=== PATIENT | female | born 1950 | race Caucasian/White ===

== ENCOUNTER 2020-07-02 11:58 | Inpatient (IN) | payer MEDICARE, OTHER ==
[~2020-07-02] VITALS: Ht 160 cm; Wt 88.9 kg
--- NOTE | 2020-07-02 12:17 | NUR ---
Patient here for medical clearance. She is awake, alert and oriented to place. She is already n a hold for suicide attempt. She has bandages on her left lower arm that are clean and dry. She has a skin tear below her elbow area on her right forearm. I placed a new clean non adhering bandage over it. 12 lead EKG done. Patient sitting up drinking orange juice as requested
[2020-07-02] MEDS ORDERED: OMEP20CA15 PO (12:32)
[2020-07-02] MEDS ORDERED: PRAV10TA40 PO (12:32)
[2020-07-02] MEDS ORDERED: CAND32TA20 PO (12:32)
[2020-07-02] MEDS ORDERED: VENL75CA62 PO (12:32)
[2020-07-02] MEDS ORDERED: ATEN50TA PO (12:32)
[2020-07-02] MEDS ORDERED: TRIA1CAP6 PO (12:32)
[2020-07-02] MEDS ORDERED: ASPI81TA31 PO (12:32)
[2020-07-02] MEDS ORDERED: TRAZ-257 PO (12:32)
[2020-07-02] MEDS ORDERED: LORAZEPAM 0.5 MG TABLET PO ONE (12:45)
--- NOTE | 2020-07-02 13:01 | NUR ---
covid antigen swab done and sent to lab
[2020-07-02 13:05] LABS: CREATININE 1.5 mg/dL (0.6-1.3); MAGNESIUM 1.3 mg/dL (1.8-2.4); POTASSIUM 3.5 mmol/L (3.5-5.1)
[2020-07-02] MEDS ORDERED: LORAZEPAM 1 MG TABLET ONE (13:05)
[2020-07-02] MEDS ORDERED: POTASSIUM CHLORIDE 20 MEQ TAB.PRT.SR PO ONE (13:45)
[2020-07-02] MEDS ORDERED: POTASSIUM CHLORIDE 20 MEQ TAB.PRT.SR ONE (13:55)
[2020-07-02] MEDS ORDERED: MAGNESIUM OXIDE 400 MG TABLET ONE (13:55)
--- NOTE | 2020-07-02 13:59 | NUR ---
Report given to Hayley NGUYEN.
[2020-07-02] MEDS ORDERED: MAGNESIUM OXIDE 400 MG TABLET PO ONE (14:00)
--- NOTE | 2020-07-02 14:15 | NUR ---
Patients medications listed and sent to pharmacy
[2020-07-02 15:30] VITALS: BP 115/82
[2020-07-02 15:39] LABS: BASOPHILS % (AUTO) 0.8 % (0.0-2.0); EOSINOPHILS # (AUTO) 0.1 K/uL (0.0-0.7); EOSINOPHILS % (AUTO) 1.9 % (0.0-7.0); HEMATOCRIT 36.7 % (31.2-41.9); HEMOGLOBIN 12.9 g/dL (10.9-14.3); LYMPHOCYTES # (AUTO) 1.3 K/uL (20.0-40.0); LYMPHOCYTES % (AUTO) 30.8 % (20.5-51.5); MEAN CORPUSCULAR HEMOGLOBIN 35.9 uug (24.7-32.8); MEAN CORPUSCULAR HGB CONC 35 g/dL (32.3-35.6); MEAN CORPUSCULAR VOLUME 102.2 fL (75.5-95.3); MONOCYTES # (AUTO) 0.5 K/uL (2.0-10.0); MONOCYTES % (AUTO) 11.9 % (0.0-11.0); NEUTROPHILS # (AUTO) 2.4 K/uL (1.8-8.9); NEUTROPHILS % (AUTO) 54.6 % (38.5-71.5); PLATELET COUNT (AUTO) 141 K/uL (179-408); WHITE BLOOD COUNT (AUTO) 4.3 K/uL (3.8-11.8)
[2020-07-02] MEDS ORDERED: MAGNESIUM HYDROXIDE 30 ML LIQUID UDC PO PRN (15:45)
[2020-07-02] MEDS ORDERED: MAG HYDROX/AL HYDROX/SIMETH 30 ML LIQUID UDC PO PRN (15:45)
--- NOTE | 2020-07-02 15:45 | NUR ---
pt was admitted to [facility] from ER via wheelchair. According to 5150, pt attempted suicide by cutting her wrists and then called 911 for help. Upon face to face evaluation, pt states that she has been depressed and she cut herself because she felt like "she did not want to be here." she states she did not have very sharp objects, so she used a razor. pt has mostly skin tears covered by boarder gauze. Pt states that she drinks frequently, almost every day and that's when she feels more depressed. Pt recieved Ativan for withdrawals. Pt admits that she called for help after cutting because she realized that she doesn't really want to be . Pt contracts for safety.
[2020-07-02 16:00] LABS: THYROID STIMULATING HORMONE 1.684 mIU/mL (0.358-3.740)
--- NOTE | 2020-07-02 16:01 | NUR ---
Firearms Report: Auto Service Advisor completed and submitted a [employer] firearms report for 5150 danger to self certifications. A copy of report has been placed in patient chart.
--- NOTE | 2020-07-02 16:07 | NUR ---
Initial Discharge Plan: Patient currently resides at home with brother Srikanth ([phone]) at [address] [place] [address]. Patient would want to return back home. This SW contacted patient's brother Srikanth ([phone]) to discuss treatment plan, however, he was unavailable. This SW will work with the treatment team and the MD to help coordinate proper discharge.
--- NOTE | 2020-07-02 16:07 | NUR ---
Family Contact: This SW contacted patient's brother Srikanth ([phone]) to discuss treatment plan, however, he was unavailable.
[2020-07-02] MEDS ORDERED: Medication Not On Formulary EA (Pravastatin Sodium 1 TAB) PO SCH (18:00)
[2020-07-02] MEDS: LORAZEPAM 0.5 MG TABLET PO PRN (18:44)
[2020-07-02] MEDS: ATENOLOL 50 MG TABLET PO SCH (20:24)
[2020-07-02] MEDS: ATORVASTATIN 10 MG TABLET PO SCH (20:24)
[2020-07-02] MEDS: ACETAMINOPHEN 325 MG TABLET PO PRN (20:25)
[2020-07-02 20:37] VITALS: BP 120/71
[2020-07-02] MEDS: ZOLPIDEM 5 MG TABLET PO PRN (21:41)
[2020-07-03] MEDS: PANTOPRAZOLE SODIUM 40 MG TABLET.DR PO SCH (06:01)
--- NOTE | 2020-07-03 06:40 | NUR ---
PT SLEPT 6 H. PT CALM WHEN APPROACHED. COOPERATIVE WITH CARE. PRESCRIBED MEDICATION GIVEN AND PT TOLERATED IT WELL.PT GIVEN TYLENOL AT 2024H.AMBIEN PRN GIVEN AT 2140H. SAFETY AND COMFORT PROVIDED. WILL ENDORSE TO INCOMING NURSE FOR CONTINUITY OF CARE.
[2020-07-03 07:06] LABS: BILIRUBIN,TOTAL 0.8 mg/dL (0.2-1.0); CREATININE 1.5 mg/dL (0.6-1.3); POTASSIUM 3.7 mmol/L (3.5-5.1); TOTAL PROTEIN, SERUM 7.4 g/dL (6.4-8.2)
[2020-07-03 07:30] VITALS: BP 116/59
--- NOTE | 2020-07-03 08:26 | NUR ---
Brief Substance Abuse Intervention: Patient was provided with a brief substance abuse intervention and referred to the following substance abuse programs: [facility] ([phone]); [facility] [address] [place] [address] ([phone]); [facility] [address] [facility] [place] [address] ([phone]); [facility] ([phone]); [facility] ([phone]); [facility] ([phone]); [facility] ([phone]).
[2020-07-03] MEDS: ASPIRIN 81 MG TAB.CHEW PO SCH (08:47)
[2020-07-03] MEDS: ATENOLOL 50 MG TABLET PO SCH ×2 (08:48→20:36)
[2020-07-03] MEDS: LORAZEPAM 0.5 MG TABLET PO PRN (08:55)
[2020-07-03] MEDS ORDERED: Medication Not On Formulary EA (Omeprazole 1 CAP) PO SCH (09:00)
[2020-07-03] MEDS ORDERED: Medication Not On Formulary EA (Triamterene/Hydrochlorothiazid (Triamterene-Hctz 37.5-25 PO SCH (09:00)
[2020-07-03] MEDS ORDERED: PNEUMOCOCCAL 23-VAL P-SAC VAC 0.5 ML VIAL IM ONE (09:00)
[2020-07-03] MEDS ORDERED: TRIAMTERENE/HCTZ 75-50 MG TABLET PO SCH (09:00)
--- NOTE | 2020-07-03 11:27 | NUR ---
Family Contact: This SW spoke with patient's brother Srikanth ([phone]) and discussed treatment and discharge plan. Srikanth stated he will pickle cutter the patient at time of discharge.
[2020-07-03] MEDS ORDERED: VENLAFAXINE XR 75 MG TAB.ER.24H PO SCH (14:30)
--- NOTE | 2020-07-03 15:45 | NUR ---
Gps/Die Maintenance Technician- IVF of NS infusing at 100 ml /hr via IV pump to his left arm . Patient has adequate fluid intake, needed occ. prompting and encouragement to feed self after set up. Addendum: 07/03/20 at 1548 by VI MCGOWAN LVN Gps/Die Maintenance Technician- Error in charting wrong patient
--- NOTE | 2020-07-03 15:48 | NUR ---
Gps/Specifications Checker- Stayed in the activity room participating in her group tx.
[2020-07-03 16:00] VITALS: BP 157/70
[2020-07-03] MEDS: VENLAFAXINE XR 37.5 MG CAP.SR.24H PO SCH (18:14)
[2020-07-03 20:31] VITALS: BP 148/78
[2020-07-03] MEDS: TRAZODONE 100 MG TABLET PO SCH (20:35)
[2020-07-03] MEDS: ATORVASTATIN 10 MG TABLET PO SCH (20:47)
[2020-07-03] MEDS: ZOLPIDEM 5 MG TABLET PO PRN (22:50)
--- NOTE | 2020-07-04 05:41 | NUR ---
NSG: Remain calm and cooperative with meds and care. self care. no agitation noted through the night. resting in bed comfortably. continue plan of care.
[2020-07-04] MEDS: PANTOPRAZOLE SODIUM 40 MG TABLET.DR PO SCH (06:21)
--- NOTE | 2020-07-04 06:49 | NUR ---
slept 6 hrs through the night.
[2020-07-04 07:30] VITALS: BP 153/78
[2020-07-04] MEDS ORDERED: PNEUMOCOCCAL 23-VAL P-SAC VAC 0.5 ML VIAL IM ONE (09:00)
[2020-07-04] MEDS: ASPIRIN 81 MG TAB.CHEW PO SCH (09:26)
[2020-07-04] MEDS: ATENOLOL 50 MG TABLET PO SCH ×2 (09:26→20:30)
[2020-07-04] MEDS: VENLAFAXINE XR 37.5 MG CAP.SR.24H PO SCH (09:26)
[2020-07-04 09:34] LABS: BASOPHILS % (AUTO) 0.4 % (0.0-2.0); EOSINOPHILS # (AUTO) 0.2 K/uL (0.0-0.7); HEMATOCRIT 37.6 % (31.2-41.9); HEMOGLOBIN 13.1 g/dL (10.9-14.3); LYMPHOCYTES # (AUTO) 2.2 K/uL (20.0-40.0); LYMPHOCYTES % (AUTO) 32.2 % (20.5-51.5); MEAN CORPUSCULAR HGB CONC 35 g/dL (32.3-35.6); MEAN CORPUSCULAR VOLUME 102.8 fL (75.5-95.3); MONOCYTES # (AUTO) 0.5 K/uL (2.0-10.0); MONOCYTES % (AUTO) 7.8 % (0.0-11.0); NEUTROPHILS # (AUTO) 3.9 K/uL (1.8-8.9); NEUTROPHILS % (AUTO) 56.6 % (38.5-71.5); PLATELET COUNT (AUTO) 184 K/uL (179-408); RED BLOOD CELL COUNT(AUTO) 3.65 MIL/uL (3.63-4.92); WHITE BLOOD COUNT (AUTO) 6.8 K/uL (3.8-11.8)
[2020-07-04] MEDS: ACETAMINOPHEN 325 MG TABLET PO PRN ×2 (09:35→17:12)
[2020-07-04] MEDS: LORAZEPAM 0.5 MG TABLET PO PRN ×2 (09:36→17:12)
[2020-07-04 09:52] LABS: CREATININE 1.4 mg/dL (0.6-1.3); MAGNESIUM 1.4 mg/dL (1.8-2.4); PHOSPHOROUS 3.5 mg/dL (2.5-4.9); POTASSIUM 3.9 mmol/L (3.5-5.1); URIC ACID 6.2 mg/dL (2.6-6.0)
--- NOTE | 2020-07-04 10:15 | NUR ---
UR NOTE: AUTH# [id number] YAJAIRA spoke with and faxed Tonja Lindsay [facility] ( ) patient's history and physical, medication and labs. Addendum: 07/04/20 at 1017 by ANJELICA CARRASCO Tonja stated that she will set up the patient's outpatient psychiatric services upon patient's discharge back home.
[2020-07-04] MEDS ORDERED: MAGNESIUM OXIDE 400 MG TABLET PO ONE (11:30)
--- NOTE | 2020-07-04 11:46 | NUR ---
YAJAIRA Individual Therapy: SW met with patient today for individual counseling and addressed patient's presenting problem of suicidal ideation and anxiety. Patient was able to reflect back when she started to have anxiety and the possibilities of why. SW helped patient identify important and significant factors in her life which may effect her emotional state. Patient was able to set new goals and formulate safe plan to prevent suicidal ideation and anxiety. SW provided encouragement and motivation for patient to remain goal oriented.
--- NOTE | 2020-07-04 12:48 | NUR ---
WOUND CARE CONSULT: PT PRESENTS WITH RT UPPER ARM SKIN TEAR, PRESENT ON ADMISSION. RECOMMENDATIONS MADE FOR SKIN PROTECTION AND WOUND CARE. DISCUSSED WITH NURSING STAFF. IN AGREEMENT WITH PLAN OF CARE. Addendum: 07/04/20 at 1249 by DENNY VOGEL RN Amended: Links added.
[2020-07-04 16:00] VITALS: BP 130/79
[2020-07-04 19:56] VITALS: BP 113/58
[2020-07-04] MEDS: ATORVASTATIN 10 MG TABLET PO SCH (20:30)
[2020-07-04] MEDS: TRAZODONE 100 MG TABLET PO SCH (20:30)
[2020-07-04] MEDS: ZOLPIDEM 5 MG TABLET PO PRN (21:54)
[2020-07-05] MEDS: ACETAMINOPHEN 325 MG TABLET PO PRN ×3 (05:00→18:18)
[2020-07-05] MEDS: LORAZEPAM 0.5 MG TABLET PO PRN ×3 (05:00→21:07)
[2020-07-05] MEDS: PANTOPRAZOLE SODIUM 40 MG TABLET.DR PO SCH (05:44)
--- NOTE | 2020-07-05 06:23 | NUR ---
Patient up and down during the night. PRN medication given for anxiety and headache. Patient denies SI at this time. Monitoring for safety , frequent rounding done. Total sleep 6.30 hours.
[2020-07-05 07:30] VITALS: BP 124/69
[2020-07-05] MEDS: VENLAFAXINE XR 37.5 MG CAP.SR.24H PO SCH (08:57)
[2020-07-05] MEDS: ATENOLOL 50 MG TABLET PO SCH ×2 (08:58→21:08)
[2020-07-05] MEDS: ASPIRIN 81 MG TAB.CHEW PO SCH (08:58)
[2020-07-05] MEDS ORDERED: LORAZEPAM 0.5 MG TABLET PO ONE (12:45)
[2020-07-05 16:00] VITALS: BP 131/73
[2020-07-05] MEDS: ATORVASTATIN 10 MG TABLET PO SCH (21:07)
[2020-07-05] MEDS: TRAZODONE 100 MG TABLET PO SCH (21:08)
[2020-07-05] MEDS: ZOLPIDEM 5 MG TABLET PO PRN (22:44)
--- NOTE | 2020-07-06 03:01 | NUR ---
Porter Luggage and patient had a long meaningful conversation last night. Patient adamantly denies having suicidal thoughts at this time. Patient was able to verbalize reasons to live, what her plans are for helping others and some hobbies she is interested in starting up again. Patient does struggle with anxiety and was given a PRN medication for that. Will continue to monitor for safety, SI and any other issues that may arise. No acute distress, frequent rounding done.
[2020-07-06] MEDS: PANTOPRAZOLE SODIUM 40 MG TABLET.DR PO SCH (05:53)
[2020-07-06 07:30] VITALS: BP 142/56
[2020-07-06 07:59] LABS: BASOPHILS % (AUTO) 0.6 % (0.0-2.0); EOSINOPHILS # (AUTO) 0.2 K/uL (0.0-0.7); EOSINOPHILS % (AUTO) 3.3 % (0.0-7.0); HEMATOCRIT 32.8 % (31.2-41.9); HEMOGLOBIN 11.4 g/dL (10.9-14.3); LYMPHOCYTES # (AUTO) 1.4 K/uL (20.0-40.0); LYMPHOCYTES % (AUTO) 25.9 % (20.5-51.5); MEAN CORPUSCULAR HGB CONC 35 g/dL (32.3-35.6); MEAN CORPUSCULAR VOLUME 103.2 fL (75.5-95.3); MONOCYTES # (AUTO) 0.6 K/uL (2.0-10.0); NEUTROPHILS # (AUTO) 3.3 K/uL (1.8-8.9); NEUTROPHILS % (AUTO) 59.2 % (38.5-71.5); PLATELET COUNT (AUTO) 153 K/uL (179-408); RED BLOOD CELL COUNT(AUTO) 3.18 MIL/uL (3.63-4.92); WHITE BLOOD COUNT (AUTO) 5.5 K/uL (3.8-11.8)
[2020-07-06 08:14] LABS: CREATININE 1.2 mg/dL (0.6-1.3); MAGNESIUM 1.6 mg/dL (1.8-2.4); PHOSPHOROUS 3.7 mg/dL (2.5-4.9); POTASSIUM 4.4 mmol/L (3.5-5.1)
[2020-07-06] MEDS: LORAZEPAM 0.5 MG TABLET PO PRN ×2 (08:54→18:14)
[2020-07-06] MEDS: VENLAFAXINE XR 37.5 MG CAP.SR.24H PO SCH (08:55)
[2020-07-06] MEDS: ASPIRIN 81 MG TAB.CHEW PO SCH (08:55)
[2020-07-06] MEDS: ACETAMINOPHEN 325 MG TABLET PO PRN (08:56)
[2020-07-06] MEDS: ATENOLOL 50 MG TABLET PO SCH ×2 (09:00→21:39)
[2020-07-06] MEDS ORDERED: MAGNESIUM OXIDE 400 MG TABLET PO ONE (09:45)
[2020-07-06 15:59] VITALS: BP 131/74
[2020-07-06 20:28] VITALS: BP 150/85
[2020-07-06] MEDS: ATORVASTATIN 10 MG TABLET PO SCH (21:39)
[2020-07-06] MEDS: TRAZODONE 100 MG TABLET PO SCH (21:39)
[2020-07-06] MEDS: ZOLPIDEM 5 MG TABLET PO PRN (23:26)
[2020-07-07] MEDS: ACETAMINOPHEN 325 MG TABLET PO PRN (05:12)
[2020-07-07] MEDS: LORAZEPAM 0.5 MG TABLET PO PRN ×2 (05:12→15:08)
[2020-07-07] MEDS: PANTOPRAZOLE SODIUM 40 MG TABLET.DR PO SCH (06:28)
[2020-07-07 07:30] VITALS: BP 134/76
[2020-07-07 07:48] LABS: BASOPHILS % (AUTO) 0.5 % (0.0-2.0); EOSINOPHILS # (AUTO) 0.2 K/uL (0.0-0.7); EOSINOPHILS % (AUTO) 3.8 % (0.0-7.0); HEMATOCRIT 32.2 % (31.2-41.9); HEMOGLOBIN 11.5 g/dL (10.9-14.3); LYMPHOCYTES # (AUTO) 1.3 K/uL (20.0-40.0); LYMPHOCYTES % (AUTO) 21.2 % (20.5-51.5); MEAN CORPUSCULAR HEMOGLOBIN 36.3 uug (24.7-32.8); MEAN CORPUSCULAR HGB CONC 36 g/dL (32.3-35.6); MONOCYTES # (AUTO) 0.6 K/uL (2.0-10.0); MONOCYTES % (AUTO) 10.5 % (0.0-11.0); NEUTROPHILS # (AUTO) 3.9 K/uL (1.8-8.9); PLATELET COUNT (AUTO) 172 K/uL (179-408); RED BLOOD CELL COUNT(AUTO) 3.16 MIL/uL (3.63-4.92); WHITE BLOOD COUNT (AUTO) 6.1 K/uL (3.8-11.8)
[2020-07-07 08:14] LABS: CREATININE 1.3 mg/dL (0.6-1.3); MAGNESIUM 1.5 mg/dL (1.8-2.4); PHOSPHOROUS 3.5 mg/dL (2.5-4.9); POTASSIUM 4.6 mmol/L (3.5-5.1)
[2020-07-07] MEDS ORDERED: MAGNESIUM OXIDE 400 MG TABLET PO ONE (08:30)
[2020-07-07] MEDS: ASPIRIN 81 MG TAB.CHEW PO SCH (09:06)
[2020-07-07] MEDS: VENLAFAXINE XR 37.5 MG CAP.SR.24H PO SCH (09:07)
[2020-07-07] MEDS: ATENOLOL 50 MG TABLET PO SCH ×2 (09:07→20:10)
--- NOTE | 2020-07-07 09:30 | NUR ---
UR NOTE: AUTH# [id number] YAJAIRA spoke with and faxed Tonja Salcido ( ) updated patient's clinicals for review and continued authorization. Tonja also provided patient's outpatient follow ups. Patient is scheduled for psychiatry follow up with Dr. Harrell on 07/18/20 at 3:00pm at [address] [place] [address] [address] [facility] [address] ([phone]; [phone]). Patient also has an appointment scheduled on 07/14 at 8:00pm with Dr. Malone Psychologist for therapy at [address] [place] [address] [address] [facility] [address] ([phone]; [phone]). Addendum: 07/07/20 at 1622 by ANJELICA CARRASCO Patient is authorized for her hospitalization through Tuesday07/08/20 with discharge on Tuesday07/09/20.
[2020-07-07 14:56] LABS: *BILIRUBIN,URIN NEGATIVE (NEGATIVE); *CLARITY,URINE CLEAR (CLEAR); *COLOR,URINE YELLOW (YELLOW); *KETONES,URINE NEGATIVE (NEGATIVE); *UROBILINOGEN,URINE 0.2 E.U./dl (NORMAL); LEUKOCYTE ESTERASE ,URINE NEGATIVE (NEGATIVE); NITRITE, URINE NEGATIVE (NEGATIVE); UGLUCOSE NEGATIVE (NEGATIVE)
[2020-07-07 15:03] LABS: *BLOOD, URINE TRACE (NEGATIVE)
[2020-07-07 15:15] LABS: *CREATININE,URINE 52.4 mg/dL (30-125); *URINE TOTAL PROTEIN RANDOM 12.3 mg/dL (<150/24HR)
[2020-07-07 15:16] LABS: BACTERIA,URINE FEW /HPF (NONE SEEN); SQUAMOUS EPITHELIAL CELL,UR FEW /HPF (NONE SEEN); WBC,URINE 0-3 /HPF (0-3)
[2020-07-07 16:00] VITALS: BP 149/74
[2020-07-07] MEDS: TRAZODONE 100 MG TABLET PO SCH (20:10)
[2020-07-07] MEDS: ATORVASTATIN 10 MG TABLET PO SCH (20:10)
[2020-07-07 20:57] VITALS: BP 144/67
[2020-07-07] MEDS: ZOLPIDEM 5 MG TABLET PO PRN (22:23)
[2020-07-08] MEDS: ACETAMINOPHEN 325 MG TABLET PO PRN ×2 (03:42→20:07)
[2020-07-08] MEDS: PANTOPRAZOLE SODIUM 40 MG TABLET.DR PO SCH (06:02)
[2020-07-08 07:23] LABS: BASOPHILS % (AUTO) 0.6 % (0.0-2.0); EOSINOPHILS # (AUTO) 0.2 K/uL (0.0-0.7); HEMATOCRIT 33.5 % (31.2-41.9); HEMOGLOBIN 11.9 g/dL (10.9-14.3); LYMPHOCYTES # (AUTO) 1.5 K/uL (20.0-40.0); LYMPHOCYTES % (AUTO) 25.7 % (20.5-51.5); MEAN CORPUSCULAR HEMOGLOBIN 36.3 uug (24.7-32.8); MEAN CORPUSCULAR HGB CONC 35 g/dL (32.3-35.6); MEAN CORPUSCULAR VOLUME 102.5 fL (75.5-95.3); MONOCYTES # (AUTO) 0.6 K/uL (2.0-10.0); MONOCYTES % (AUTO) 10.7 % (0.0-11.0); NEUTROPHILS # (AUTO) 3.5 K/uL (1.8-8.9); PLATELET COUNT (AUTO) 188 K/uL (179-408); RED BLOOD CELL COUNT(AUTO) 3.27 MIL/uL (3.63-4.92)
[2020-07-08 07:30] VITALS: BP 148/58
[2020-07-08 07:47] LABS: BILIRUBIN,TOTAL 0.3 mg/dL (0.2-1.0); CREATININE 1.1 mg/dL (0.6-1.3); MAGNESIUM 1.6 mg/dL (1.8-2.4); PHOSPHOROUS 3.4 mg/dL (2.5-4.9); POTASSIUM 4.5 mmol/L (3.5-5.1); TOTAL PROTEIN, SERUM 6.9 g/dL (6.4-8.2)
[2020-07-08] MEDS: ATENOLOL 50 MG TABLET PO SCH ×2 (08:56→20:08)
[2020-07-08] MEDS: VENLAFAXINE XR 150 MG CAP.SR.24H PO SCH (08:56)
[2020-07-08] MEDS: ASPIRIN 81 MG TAB.CHEW PO SCH (08:57)
[2020-07-08] MEDS ORDERED: MAGNESIUM OXIDE 400 MG TABLET PO ONE (09:15)
--- NOTE | 2020-07-08 10:45 | NUR ---
YAJAIRA Individual Therapy Note: SW met with patient to provide brief individual counseling to address patient's presenting problem of suicidal ideation. SW assessed patient's level of suicidality. Patient denies current suicidal ideation and no plans or intent to harm herself. Patient was able to express her "goal list" she created after last weeks individual session with patient. Patient present with euthymic mood and brighter affect. Patient is shared some of her short-term and long-term goals. SW provided motivation to stay focused on her goals and to ask for help when needed. Patient is receptive. Patient has been particiapting in group activities and interacting with her peers positively.
[2020-07-08 15:36] VITALS: BP 144/73
[2020-07-08] MEDS: LORAZEPAM 0.5 MG TABLET PO PRN (15:44)
[2020-07-08] MEDS: TRAZODONE 100 MG TABLET PO SCH (20:08)
[2020-07-08] MEDS: ATORVASTATIN 10 MG TABLET PO SCH (20:08)
[2020-07-08 20:29] VITALS: BP 144/79
[2020-07-08] MEDS: ZOLPIDEM 5 MG TABLET PO PRN (21:52)
[2020-07-09] MEDS: PANTOPRAZOLE SODIUM 40 MG TABLET.DR PO SCH (06:01)
[2020-07-09] MEDS: ASPIRIN 81 MG TAB.CHEW PO SCH (08:17)
[2020-07-09] MEDS: VENLAFAXINE XR 150 MG CAP.SR.24H PO SCH (08:18)
--- NOTE | 2020-07-09 08:18 | NUR ---
SW Discharge Note: Patient will be discharged home [address] [place] [address]. Patient lives with her brother Srikanth ([phone]) who is aware and agreeable with discharge plan. Patient is alert and oriented x4 and is aware and agreeable with discharge plan. Patient presents with euthymic mood and bright affect. Patient denies suicidal or homicidal ideation. Patient will be following up with her primary care physician Dr. Yarelis Powers [address] [facility], [place] [address] ([phone]). Patient is scheduled for psychiatry follow up with Dr. Harrell on 07/18/20 at 3:00pm at [address] [place] [address] [address] [facility] [address] ([phone]; [phone]). Patient also has an appointment scheduled on 07/14 at 8:00pm with Dr. Malone Psychologist for therapy at [address] [place] [address] [address] [facility] [address] ([phone]; [phone]). Patient was provided with a brief substance abuse intervention and referred to [facility] [address] [place] [address] ([phone]); [facility] [address] [facility] [address], [place] [address] ([phone]); [facility] ([phone]); [facility] ([phone]); [facility] ([phone]); and [facility] ([phone]).
[2020-07-09 08:21] VITALS: BP 144/71
[2020-07-09] MEDS: ATENOLOL 50 MG TABLET PO SCH (08:21)
--- NOTE | 2020-07-09 08:42 | NUR ---
UR NOTE: AUTH# [id number] faxed Tonja Salcido ( ) patient's discharge clinicals.
--- NOTE | 2020-07-09 11:58 | NUR ---
Patient was discharged to home with brother Srikanth via private care. Patient is alert and oriented x4 and is aware and agreeable with discharge plan. patient left in stable condition in no distress V.S stable. She left with all her belongings and values and discharged packet.
== END 2020-07-09 12:56 | disposition home or self-care (01) | DRG 885 ==
LOC: ER 11:58 → GPS 14:05
PROVIDERS: ADMIT Psychiatry & Neurology Psychiatry; ATTEND Registered Nurse
DX: F33.2 Major depressive disorder, recurrent severe without psychotic features (principal); N17.9 Acute kidney failure, unspecified; N18.9 Chronic kidney disease, unspecified; E87.1 Hypo-osmolality and hyponatremia; R45.851 Suicidal ideations; I13.0 Hypertensive heart and chronic kidney disease with heart failure and stage 1 through stage 4 chronic kidney disease, or unspecified chronic kidney disease; E78.5 Hyperlipidemia, unspecified; E83.42 Hypomagnesemia; E66.01 Morbid (severe) obesity due to excess calories; E86.1 Hypovolemia; E87.6 Hypokalemia; K21.9 Gastro-esophageal reflux disease without esophagitis; S61.519D Laceration without foreign body of unspecified wrist, subsequent encounter; Z91.5 Personal history of self-harm; X78.9XXD Intentional self-harm by unspecified sharp object, subsequent encounter; I50.9 Heart failure, unspecified; Z68.34 Body mass index [BMI] 34.0-34.9, adult; T50.2X5A Adverse effect of carbonic-anhydrase inhibitors, benzothiadiazides and other diuretics, initial encounter; Y92.89 Other specified places as the place of occurrence of the external cause; F10.20 Alcohol dependence, uncomplicated; Y90.9 Presence of alcohol in blood, level not specified; Z20.822 Contact with and (suspected) exposure to COVID-19; Z88.0 Allergy status to penicillin; Z88.2 Allergy status to sulfonamides; Z71.3 Dietary counseling and surveillance
CPT/HCPCS: 36415; 70030-TC; 71045; 82533; 83735; 84100; 84156; 84300; 84443; 84550; 85025; 87086; 90732; 93005; A4663